=== PATIENT | male | born 1990 | race Caucasian/White ===

== ENCOUNTER → 2017-03-15 | Emergency (ER) | payer OTHER ==
[~2017-03-15] VITALS: Ht 182.9 cm; Wt 78.7 kg
[~2017-03-15] MED LIST: DOXYCYCLINE 10100 MG PO; NAPROSYN500 MG PO; NORCO 325 MG-51 TAB PO
[2017-03-18 10:19] VITALS: BP 138/76; PULSE 49; TEMP 98.2
== END | disposition home or self-care (01) ==
LOC: COL.ER 00:30
DX: S80.871A Other superficial bite, right lower leg, initial encounter (principal); S80.812A Abrasion, left lower leg, initial encounter; W54.0XXA Bitten by dog, initial encounter; Y92.007 Garden or yard of unspecified non-institutional (private) residence as the place of occurrence of the external cause; Z23 Encounter for immunization; Z20.3 Contact with and (suspected) exposure to rabies

== ENCOUNTER 2017-03-18 10:00 | Outpatient (RCR) | payer SELFPAY ==
[~2017-03-18] VITALS: Ht 182.9 cm; Wt 77.3 kg
[2017-03-29 16:35] VITALS: BP 122/81; PULSE 59; TEMP 98.1
== END 2017-03-29 16:30 ==
LOC: COL.ER 10:00
DX: Z20.3 Contact with and (suspected) exposure to rabies (principal)